=== PATIENT | female | born 1935 | race Caucasian/White ===

== ENCOUNTER 2019-04-30 02:56 | Inpatient (IN) ==
[2019-04-30] MEDS ORDERED: NS 1,000 ML IV ONE (03:54)
[2019-04-30] MEDS ORDERED: ZOFRAN IV ONE (03:54)
[2019-04-30] MEDS ORDERED: DILAUDID IV ONE (03:54)
--- NOTE | 2019-04-30 03:56 | PROVIDER DOCUMENTATION ---
HPI-Abdominal Pain/GI Problem - General Chief Complaint: Back Pain Stated Complaint: ABD PAIN/VOMITING/CHF Time Seen by Provider: 04/30/19 03:28 Source: patient, family Allergies/Adverse Reactions: Patient Allergies Allergy/AdvReac Type Severity Reaction Status Date / Time Penicillins Allergy SWELLING Verified 04/30/19 03:32 Sulfa (Sulfonamide Allergy HIVES Verified 04/30/19 03:32 Antibiotics) Home Medications: Home Medication List Medication Instructions Recorded Confirmed Last Taken Type Diltiazem C.d. [Cardizem Cd] 180 mg PO DAILY 11/25/17 04/30/19 12/07/17 09:00 History Simvastatin 10 mg PO QHS 11/25/17 04/30/19 12/07/17 09:00 History Carvedilol [Coreg] 6.25 mg PO BID #60 tab 12/19/17 04/30/19 Unknown Rx Apixaban [Eliquis] 5 mg PO BID 03/13/18 04/30/19 Unknown History Furosemide [Lasix] 20 mg PO BID 03/13/18 04/30/19 Unknown History Hydralazine [Apresoline] 25 mg PO BID 03/13/18 04/30/19 Unknown History Levothyroxine Sodium [Synthroid] 100 mcg PO DAILY 03/13/18 04/30/19 Unknown History - History of Present Illness-ABD Nature of Presenting Problems: A 84 Y/O FEMALE PRESENTS WITH C/O ABD PAIN SINCE 10 PM LAST NIGHT. PAINIS ABOUT A 10 AND CRAMPING. ASSOCIATED WITH SOME NAUSEA AND NBNB EMESIS X3 BEFORE COMING TO ER. DENIES ANY CP OR SOB. DENIES ANY DIARRHEA. DENIES ANY FEVER OR CHILLS. LAST BM WAS YESTERDAY. PT HAD DINNER ABOUT 6 PM YESTERDAY. HAS HX OF COLON RESECTION Abdominal Pain Onset Location: reports: generalized abdomen Quality of Pain: reports: cramping, sharp Severity in ED: reports: severe Onset/Duration: reports: 4-6 hours ago Timing: reports: still present, constant, getting worse Activities at Onset: reports: none Exposure to sick contacts?: No Modifying Factors: improves with: nothing Associated Symptoms: reports: nausea, vomiting, weakness. denies: chest pain, constipation, cough, diaphoresis, diarrhea, dizziness, fatigue, fever/chills, genitourinary problems, headaches, loss of appetite, shortness of breath, syncope Dark Stools Present?: reports: none noticed Rectal Bleeding: reports: none # of Vomiting Episodes: 3 Emesis Description: reports: clear Review of Systems - Adult - REVIEW OF SYSTEMS - ADULT Constitutional: denies: no symptoms reported Eyes: denies: no symptoms reported Ears, Nose, Mouth & Throat: denies: no symptoms reported Cardiovascular: denies: no symptoms reported Respiratory: denies: no symptoms reported Gastrointestinal: reports: see HPI Genitourinary: reports: see HPI Musculoskeletal: denies: no symptoms reported Integumentary: denies: no symptoms reported Neurological: denies: no symptoms reported Psychiatric: denies: no symptoms reported Endocrine: denies: no symptoms reported Hematologic/Lymphatic: denies: no symptoms reported Allergic/Immunologic: denies: no symptoms reported Past History - Adult - PAST MEDICAL HISTORY-ADULT Review of Records: reports: Old Records Reviewed, Nursing Assessment Review, Medications Reviewed, Social history reviewed & non-contributory. Major Childhood Illnesses: reports: denies history Cardiovascular: reports: HTN Respiratory: reports: denies history Gastrointestinal: reports: denies history Obstetrical/Gynecological: reports: denies history Genitourinary: reports: kidney disease Musculoskeletal: reports: denies history Neurological: reports: denies history Psychiatric: reports: denies history Endocrine/Immune: reports: Diabetes Other Conditions: reports: denies history - PRIOR SURGERIES/PROCEDURES Surgical/Procedure History: reports: reviewed, not pertinent - IMMUNIZATION STATUS Childhood Immunizations: See Nurse Assessment Flu Vaccine: See Nurse Assessment - FAMILY HISTORY Family History: reviewed, not pertinent Physical Exam-General - PHYSICAL EXAM-ADULT Initial Vital Signs Reviewed: Yes - CONSTITUTIONAL General Appearance: alert, moderate distress - EYES Eyes: PERRL/EOMI - HEAD, EARS, NOSE, MOUTH & THROAT HENMT: normocephalic/atraumatic, pharynx normal. negative: moist mucous membranes - RESPIRATORY Respiratory: lungs clear, normal breath sounds, no respiratory distress, no accessory muscle use - CARDIOVASCULAR Cardiovascular: regular rate, rhythm, no murmur - GASTROINTESTINAL (ABDOMEN) Abdominal Exam: abnormal bowel sounds, guarding, tenderness (GENERALIZED), hernia (VENTRAL HERNIA, BILATERAL). negative: rigid - MUSCULOSKELETAL Back Exam: no CVA tenderness, no vertebral tenderness Extremity: non-tender, pedal edema (TRACE). negative: calf tenderness Peripheral Pulses: radial (R): 2+, radial (L): 2+ - SKIN Integumentary: normal color, warm/dry - NEUROLOGIC Neurologic: grossly normal - PSYCHIATRIC Psych/Mental Status: normal mood/affect, normal thought content, normal thought process, oriented x 3 Progress - PLAN OF CARE/RESULTS Progress/Plan/Lab Results: Vital Signs - 8 hr 04/30/19 03:07 Temperature 97.4 F L Pulse Rate 67 Respiratory Rate 14 Blood Pressure 191/97 O2 Sat by Pulse Oximetry 95 Orders Category Date Time Status Saline Loc DIRECTED Care 04/30/19 03:53 Ordered NPO Diet 04/30/19 03:[address] ABD/PELVIS W/IV CONT ONLY [CT] Stat Exams 04/30/19 03:52 Ordered AMYLASE [CHEM] Stat Lab 04/30/19 03:53 Uncollected CBC WITH ELECTRONIC DIFF [HEME] Stat Lab 04/30/19 03:53 Uncollected COMPREHENSIVE METABOLIC PANEL [CHEM] Stat Lab 04/30/19 03:53 Uncollected LIPASE [CHEM] Stat Lab 04/30/19 03:53 Uncollected URINALYSIS W/POSS RFLX CULT [URINALYSIS] Stat Lab 04/30/19 03:53 Uncollected Hydromorphone [Dilaudid] Med 04/30/19 03:54 Once 1 mg IV NOW ONE Ns 1000 ml IV Bolus X1 Med 04/30/19 03:54 Ordered 0.9% Sodium Chloride Inj [Ns] 1,000 ml IV 999 mls/hr Ondansetron [Zofran] Med 04/30/19 03:54 Once 4 mg IV NOW ONE Result Diagrams: 04/30/19 03:55 04/30/19 03:55 - REASSESSMENT Reassessment #1 Time Reassessed: 06:00 Status: improving (PAIN BETTER AFTER DILAUDID. CONTINUES TO HAVE WHEN MOVES. CT PENDING) - CONSULTS/PCP/HOSPITALIST Notification #1 *Consult/PCP/Hospitalist*: D/W DR EDMONDS Time Discussed: 06:25 Consult Disposition: Will see in ED, Admit (ADMIT TO HOSPITALIST) #2 Consult: D/W NAHUN FOR HOSPITALIST Time Discussed: 07:40 Consult Disposition: Admit Departure - Departure Date of Disposition Decision: 04/30/19 Time of Disposition Decision: 06:43 DIAGNOSIS: Small bowel obstruction, Abdominal pain Disposition: ADMITTED INPATIENT 09 Certified Medical Emergency: Emergent Condition: Serious Referrals and Follow-Ups: Salinas Mora MD [Primary Care Provider] - - Critical Care Note This patient required my direct & personal management of CC.: No Attestation - Physician/ WILI Attestation Patient care was provided by Advanced Practice Provider:: No The physician spent face to face time with patient:: Yes Advanced Practice Provider documentation review:: Supervising physician onsite and consulted in the evaluation and care of this patient. The physician did have a face to face encounter with the patient.
[2019-04-30 04:32] LABS: EOS# 0.04 X1000 (0.0-0.7); EOS% 0.3 % (0.0-10.0); HEMATOCRIT 38.8 % (37.0-47.0); IMM GRAN# 0.02 X1000 (0.0-0.04); IMM GRAN% 0.2 % (0.0-0.5); LYMPH# 0.86 X1000 (1.2-3.4); LYMPH% 7.1 % (20.5-51.1); MCH 28.8 PG (27-31); MCHC 30.9 g/dL (33-37); MCV 93.3 FL (81-99); MONO# 0.82 X1000 (0.11-0.59); MONO% 6.7 % (1.7-9.3); MPV 11.7 FL (7.4-10.4); NEUT# 10.41 X1000 (1.4-6.5); NEUT% 85.7 % (42.2-75.2); PLT 198 X1000 (130-400); RBC 4.16 XMIL (4.2-5.4); RDW 13.1 % (11.5-14.5); WBC 12.15 X1000 (4.8-10.8)
[2019-04-30 04:50] LABS: ALB/GLOB RATIO 1.1; CALCIUM 9.6 mg/dL (8.8-10.2); CREATININE 2.7 mg/dL (0.5-0.9); POTASSIUM 5.3 mmol/L (3.5-5.1); TOTAL BILIRUBIN 0.52 mg/dL (0.20-1.00); TOTAL PROTEIN 7.6 g/dL (6.3-8.3)
[2019-04-30 07:42] LABS: URINE SOURCE CLEAN CATCH
[2019-04-30 07:49] LABS: BILIRUBIN URINE NEGATIVE (NEGATIVE); BLOOD URINE NEGATIVE (NEGATIVE); COLOR YELLOW; GLUCOSE URINE 70 mg/dL (NEGATIVE); KETONE URINE TRACE mg/dL (NEGATIVE); LEUKOCYTES URINE NEGATIVE (NEGATIVE); NITRITE URINE NEGATIVE (NEGATIVE); PROTEIN URINE 70 mg/dL (NEGATIVE); SP GRAVITY URINE 1.013; TURBIDITY URINE CLEAR (CLEAR); UROBILINOGEN URINE NORMAL (NORMAL)
[2019-04-30 07:51] LABS: UR EPITHELIAL CELLS <10 /HPF (<10); URINE BACTERIA NEGATIVE /HPF; URINE RBC <10 /HPF (<10); URINE WBC <10 /HPF (<10)
[2019-04-30] MEDS ORDERED: SODIUM CHLORIDE 0.9% INJ ONE (08:25)
[2019-04-30] MEDS ORDERED: ZOFRAN IV PRN (08:25)
[2019-04-30] MEDS ORDERED: SYNTHROID IV ONE (08:25)
[2019-04-30 08:54] LABS: HEMOGLOBIN A1C 5.2 % (4.8-6.0)
--- NOTE | 2019-04-30 09:06 | Diag Imaging Result Doc PS360 ---
EXAM: CT ABDOMEN/PELVIS W/O CONTRAST INDICATION: ABD PAIN TECHNIQUE: This exam was performed using automated exposure control, adjustment of mA or kV according to patient size, and/or use of iterative reconstruction technique. COMPARISON: 12/12/2017 FINDINGS: There is mild subsegmental atelectasis at the lung bases. There has been a prior cholecystectomy. The liver, spleen, pancreas, and adrenal glands are unremarkable. There is stable marked pelvocaliectasis and dilation of a majority of the left ureter that is stable. There is associated marked left renal cortical thinning. The right kidney is essentially unremarkable by unenhanced CT. The urinary bladder is unremarkable. The reproductive tract is essentially unremarkable as imaged. There is a large paraumbilical hernia. This is also seen on the previous study. Loops of small bowel extend into the hernia and there are distended bowel loops in the right side of the hernia that appears to be causing obstruction. There is equalization of the small bowel contents in this region. Proximal to this, there is small bowel distention with air-fluid levels. The distal ileum is decompressed. There is no colonic distention. The remainder of the GI tract is essentially unremarkable. There is spondylosis. There is no evidence of acute osseous abnormality. IMPRESSION: 1.Large periumbilical ventral abdominal wall hernia causing a high-grade small bowel obstruction. 2.Stable severe chronic pelvocaliectasis on the left. 3.Other incidental/nonacute findings detailed above. Electronically signed by Salinas Hedrick 04/30/2019 9:04 AM
[2019-04-30 09:09] LABS: FREE T4 1.41 ng/dL (0.93-1.70); TSH 3.8 uIUmL (0.27-4.20)
[2019-04-30] MEDS: DILAUDID IV PRN ×3 (10:42→18:21)
[2019-04-30] MEDS: NS 1,000 ML IV SCH (10:43)
[2019-04-30] MEDS: HUMULIN R SUBQ SCH ×3 (12:07→21:00)
[2019-04-30] MEDS: LOPRESSOR IV SCH ×3 (12:09→22:54)
--- NOTE | 2019-04-30 12:43 | EKG Report ---
Test Performed on : 04/30/2019 12:37:51 PM Test Reason : rythm eval; hx afib Blood Pressure : / mmHG Vent. Rate : 075 BPM Atrial Rate : 075 BPM P-R Int : 192 ms QRS Dur : 140 ms QT Int : 430 ms P-R-T Axes : 055 -42 050 degrees QTc Int : 480 ms Normal sinus rhythm. Possible Left atrial enlargement Left axis deviation Right bundle branch block Abnormal ECG When compared with ECG of 13-MAR-2018 13:51, Criteria for Septal infarct are no longer present Confirmed by Jef JUAREZ, Brandon Rico ([id number]) on 05/01/2019 9:04:24 AM
--- NOTE | 2019-04-30 13:34 | GENERAL SURGERY CONSULTATION ---
DATE: 04/30/2019 REQUESTING PHYSICIAN: Emergency Department. CONSULT REQUEST: Small bowel obstruction. HISTORY OF PRESENT ILLNESS: An 84-year-old female with multiple medical comorbidities initially presenting with back ache and abdominal pain and some nausea and vomiting. She also reported some epigastric pain. She was seen in the emergency department, had a CT scan that showed a bowel obstruction secondary to ventral hernia that has been there for some time. I was asked to weigh an opinion. The patient is doing okay right now, wants to try to avoid surgery. PAST MEDICAL HISTORY: 1. Atrial fibrillation. 2. Diabetes. 3. Chronic kidney disease. 4. Hypertension. 5. Gout. 6. Obesity. 7. Lymphedema. 8. Chronic respiratory failure. 9. History of DVT. PAST SURGICAL HISTORY: Includes 1. Cystoscopy. 2. Colectomy. 3. Cholecystectomy. 4. Abdominal hernia repair. 5. Partial nephrectomy. 6. Lysis of adhesions. FAMILY HISTORY: Reviewed with patient, noncontributory. SOCIAL HISTORY: Lives with daughter. Denies alcohol, tobacco, or illicit drugs. HOME MEDICATIONS: Reviewed. Of note, patient is on Eliquis. ALLERGIES: 1. Penicillin. 2. Sulfa. REVIEW OF SYSTEMS: A full 14-point systems reviewed and negative as specified in HPI. PHYSICAL EXAMINATION: Vital Signs: Patient is currently afebrile. Blood pressure is 191/97, pulse is 67. General: No acute distress but chronically ill female, looks stated age. HEENT: Normocephalic, atraumatic. Pupils equal, round, reactive to light. Mucous membranes moist. Oropharynx benign. Neck: Supple. Trachea midline. Cardiovascular: Regular rate and rhythm. Lungs: Grossly clear. Abdomen: Soft, protuberant. Large ventral hernia noted in the mid aspect of her abdomen. Extremities: Moves all extremities. Neurologic: Grossly intact. Skin: No signs of jaundice. Vascular: All extremities perfused. LABORATORY DATA: White blood count is 12, hematocrit 38, platelet count 198,000. There is a slight left shift. Remainder of labs reviewed. Of note, her creatinine is 2.7. CT scan independently reviewed and radiology report reviewed. ASSESSMENT/PLAN: An 84-year-old with a bowel obstruction likely related to ventral hernia. 1. Bowel obstruction. At this time, given patient's multiple active comorbidities including hypertension, diabetes, atrial fibrillation, being on Eliquis, chronic respiratory failure, I believe that she is high risk for surgery. Discussed extensively with her the options. At this point, we will try conservative nonoperative management and try to see if we can get her improved with bowel rest. If she has any kind of deterioration, we will plan on surgical intervention, but at this time, I think we can try to manage her nonoperatively. 2. Multiple medical comorbidities. Please see above. The patient to be admitted by the hospitalist. cc: Demetrius Benitez MD
--- NOTE | 2019-04-30 19:21 | HISTORY AND PHYSICAL ---
PRIMARY CARE PROVIDER: Dr. Vargas. CHIEF COMPLAINT: Abdominal pain. HISTORY OF PRESENT ILLNESS: Ms. Dina Javier is an 84-year-old female with a medical history of paroxysmal atrial fibrillation, diabetes mellitus type 2, stage III CKD, hypertension, obesity, ventral hernia, apparently some abdominal lysis of adhesions in the past, partial nephrectomy from lesions and is now here for complaints of abdominal pain that is bilateral lower quadrant where she has 2 areas of protrusion consistent with ventral wall hernia. She states that yesterday evening when she was trying to have a bowel movement she felt the pain start. No bowel movement since then. She did have some nausea, but that is resolved. No vomiting so she presented to the emergency department here at [facility] had abdominal pelvic CT, which shows a large periumbilical ventral abdominal wall hernia with a high- grade small bowel obstruction. Dr. Benitez was consulted. It looks like Dr. Cuba has been placed into the consult location. We will keep her n.p.o. and give her some IV fluids. PAST MEDICAL HISTORY: 1. Paroxysmal atrial fibrillation. 2. Diabetes mellitus type 2. 3. Anemia. 4. 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 5. Hypertension. 6. Gout. 7. Morbid obesity with a BMI of 39. 8. Chronic oxygen use likely Pickwickian syndrome or it could be COPD but no history of smoking. She is on 3 to 4 L of oxygen at home. Uses BiPAP at night for his obstructive sleep apnea. 9. DVT history. 10. Hypothyroidism. 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 12. Congestive heart failure. 13. Ventral hernia. SURGICAL HISTORY: 1. A cystoscopy with bilateral retrograde pyelograms and left diagnostic ureteroscopy, and this was in November [address] Lopez. 2. Extensive laparoscopic lysis of adhesions with right robotic assisted laparoscopic partial nephrectomy of 3 lesions, and this was on 12/03/[address] Lopez. 3. She has had 2 central lines when she has been here in the past. 4. Partial colectomy. 5. Questionable ventral hernia repair. 6. It looks like from Dr. Lopez note from November 2017 she had the partial nephrectomy on the right and there is also apparently a nonfunctioning left kidney. SOCIAL HISTORY: Does not smoke. Just rarely will she drink some wine but no drugs. Lives with her daughter. Uses a walker to get around. Always has sitters with her. FAMILY HISTORY: Mother at 38 from uterine cancer. Father of an SC at 68 and also on his side of the family mother and father both had heart disease and the father had a stroke. ALLERGIES: Penicillin and sulfa. HOME MEDICATIONS: 1. Simvastatin 10 mg p.o. nightly. 2. Apresoline 25 mg p.o. twice daily. 3. Diltiazem 180 mg p.o. daily. 4. Eliquis 5 mg p.o. twice daily. 5. Lasix 20 mg p.o. twice daily. 6. Synthroid 100 mcg p.o. daily. 7. Coreg 6.25 mg p.o. twice daily. REVIEW OF SYSTEMS: Fourteen-point review of systems are complete and all were negative except for those mentioned above in HPI. Denies fever, chills. PHYSICAL EXAMINATION: VITAL SIGNS: Temperature 98.2 degrees, heart rate 75, respiratory rate 16, blood pressure 119/54, O2 saturation 97% on 2 L, 5 feet 3 inches tall, 220 pounds, BMI 39. GENERAL: Ms. Dina Javier is a 84-year-old female. She is slightly discombobulated or slightly confused as she has had pain medication, but she answers questions when asked. HEENT: Atraumatic, normocephalic. Pupils equal, round, reactive to light. Extraocular movements intact. Mucous membranes are dry. NECK: Trachea midline. CARDIOVASCULAR: S1, S2. Regular rate and rhythm. No rubs, gallops, murmurs. Probably about 3 or 4+ lower extremity edema, +1 dorsalis pedal pulses. Negative for JVD or carotid bruits. PULMONARY: Clear to auscultation bilateral breath sounds. No accessory muscle use or work of breathing noted. Tolerating nasal cannula. GASTROINTESTINAL: Soft but firm in the bilateral lower quadrants, very palpable hernia bilateral lower quadrant underneath the umbilicus, ventral hernia. Very tender to palpation. Positive bowel sounds x4. EXTREMITIES: Decreased range of motion. More range of motion of the upper extremities. 4/5 strength upper 3/5 lower. NEUROLOGIC: Oriented to name, place. Followed commands. Decreased sensory in the lower extremities. SKIN: Warm, dry and intact. LABORATORY DATA: White blood cells 12,000, hemoglobin 12, hematocrit 38, platelet count 198,000, sodium 137, potassium 5.3, BUN is 14, BUN 51, creatinine is 2.7, glucose 154, A1c is 5.2, calcium 9.6, bilirubin 0.52, AST 22, ALT 7, amylase 90, lipase 67. Serum lactate 1.0. TSH 3.80, free T4 1.41. Urinalysis: 70 protein, 70 glucose, trace ketones. IMAGING: Abdominal and pelvic CT. Large periumbilical hernia. Also seen on previous study. Loops of small bowel extending into the hernia and there are distended bowel loops on the right side of the hernia that appears to be causing obstruction. There is equalization of the small bowel contents in this region proximal to this. There is small bowel distention with air fluid levels. The distal ilium is decompressed. There is no colonic distention. ASSESSMENT AND PLAN: 1. Small-bowel obstruction secondary to ventral hernia. Dr. Benitez was notified it looks like [id number], but it appears that physician will be Dr. Cuba. She is kept n.p.o. She is not vomiting, but she has antiemetics as needed and pain medication for pain control. Still having positive bowel sounds, but she is tender, and there is definitely some distention bilateral lower quadrant abdominal area below the umbilicus. 2. Chronic kidney disease stage 3. Left kidney does not work, and the right kidney has a partial nephrectomy secondary to [address] Lopez's note. Currently BUN and creatinine are 51 and 2.7, which is around baseline. She runs anywhere from 2.4 up to 3.0, and since she is n.p.o., we will give her IV fluid hydration. 3. Leukocytosis could be secondary to the bowel obstruction. There are no other signs or symptoms of infection. May have to get a chest x-ray. She has likely Pickwickian or hypoventilation syndrome secondary to obesity, but we will get a chest x-ray to rule out any cause for the leukocytosis, and since she is having gastrointestinal-related symptoms, we will add gram-negative coverage antibiotic. 4. Chronic respiratory failure with CO2 retention likely secondary to hypoventilation syndrome. She is on 3 to 4 L of oxygen at home, wears BiPAP at night for her sleep apnea. 5. Hypothyroidism. Continue Synthroid, but we will do it IV. 6. Hypertension. Again, we will do IV medications to control that. 7. Diabetes mellitus type 2. We will do patterned blood glucoses and sliding scale insulin. 8. History of reported congestive heart failure holding her p.o. Lasix. We will monitor her. She is going to be given IV fluids for now since she is n.p.o. Dictated by NEELAM Loo for William Hicks MD Addendum: Patient seen and examined by myself. Agree with NEELAM note. It reflects my assessment and plan. Patient is being admitted to hospital for SBO. Will place her in NPO, IV fluids and pain medications. Will do serial abdominal X rays and monitor her closely. cc: NEELAM Loo MD [facility]
[2019-05-01] MEDS: DILAUDID IV PRN ×5 (00:09→18:38)
[2019-05-01] MEDS: NS 1,000 ML IV SCH ×3 (00:10→09:05)
[2019-05-01] MEDS: LOPRESSOR IV SCH ×4 (03:30→22:05)
[2019-05-01 06:32] LABS: EOS# 0.01 X1000 (0.0-0.7); EOS% 0.1 % (0.0-10.0); HEMATOCRIT 35.6 % (37.0-47.0); HEMOGLOBIN 10.4 g/dL (12.0-16.0); LYMPH# 0.79 X1000 (1.2-3.4); LYMPH% 9.2 % (20.5-51.1); MCH 28.5 PG (27-31); MCHC 29.2 g/dL (33-37); MCV 97.5 FL (81-99); MONO% 18.6 % (1.7-9.3); MPV 11.8 FL (7.4-10.4); NEUT# 6.19 X1000 (1.4-6.5); NEUT% 72.1 % (42.2-75.2); PLT 197 X1000 (130-400); RBC 3.65 XMIL (4.2-5.4); RDW 13.3 % (11.5-14.5); WBC 8.59 X1000 (4.8-10.8)
[2019-05-01 06:54] LABS: INR 1.51; PROTIME 18.5 Seconds (11.0-16.0); PTT 29.4 Seconds (22.3-41.8)
[2019-05-01] MEDS: SODIUM CHLORIDE 0.9% INJ PRN (07:02)
[2019-05-01] MEDS: SYNTHROID IV SCH (07:02)
[2019-05-01 07:47] LABS: POTASSIUM 4.9 mmol/L (3.5-5.1); SODIUM 144 mmol/L (136-145)
[2019-05-01 07:48] LABS: AGAP 11; ALB/GLOB RATIO 1.2; ALBUMIN 3.3 g/dL (3.5-5.0); ALKALINE PHOSPHATASE 57 U/L (32-104); BUN 47 mg/dL (8-22); CALCIUM 8.3 mg/dL (8.8-10.2); CHLORIDE 106 mmol/L (98-107); COSMO 300; CREATININE 3.1 mg/dL (0.5-0.9); ESTIMATED GFR 14; GLUCOSE 122 mg/dL (70-104); GOT 16 U/L (10-30); GPT < 5 U/L (10-36); MAGNESIUM 2.4 mg/dL (1.5-2.7); TCO2 27 mmol/L (25-35); TOTAL BILIRUBIN 0.57 mg/dL (0.20-1.00)
[2019-05-01] MEDS: HUMULIN R SUBQ SCH ×4 (08:43→22:01)
[2019-05-01] MEDS: LOVENOX SUBQ SCH (09:05)
--- NOTE | 2019-05-01 12:13 | Diag Imaging Result Doc PS360 ---
EXAM: ABDOMEN FLAT/UPRIGHT INDICATION: sbo TECHNIQUE: 2 views COMPARISON: None. FINDINGS: There are moderately gas-distended loops of small bowel throughout the abdomen consistent with known small bowel obstruction, which was seen on a prior CT. There is no definite large volume free abdominal gas. No organomegaly is appreciated. There is spondylosis throughout the spine. IMPRESSION: Moderately distended loops of small bowel consistent with known obstruction. Electronically signed by Salinas Hedrick 05/01/2019 12:11 PM
--- NOTE | 2019-05-01 13:06 | PROGRESS NOTE ---
DATE: 05/01/2019 SUBJECTIVE: The patient reports feeling fine. She is still not having any bowel movements. She notes that she is passing gas. She denies any fever or chills. OBJECTIVE: Vital Signs: Temperature is 98.1, heart rate 85, respiratory rate 20, blood pressure 142/56, and O2 saturation 97% on 3 L nasal cannula. General: This is an 84-year-old female lying in bed in no acute distress. Cardiovascular: S1 and S2 are heard. No murmurs, gallops, or rubs. Regular rate and rhythm. Respiratory: Clear bilaterally to auscultation. No work of breathing or use of accessory muscles. Abdomen: Soft but firm. There is a ventral hernia noted and very tender to palpation. There are no signs of peritoneal irritation. Bowel sounds are present. No organomegaly. Extremities: No clubbing, cyanosis, or edema. Peripheral pulses are present in both legs. Neurological: The patient is alert and oriented times 3 and moves all 4 extremities. LABORATORY DATA: White cell count is 8.59, hemoglobin 10.4, hematocrit 35.6, and platelets 197. Creatinine is 3.1 and calcium 8.3. ASSESSMENT AND PLAN: 1. Small bowel obstruction secondary to a ventral hernia. General Surgery is following at this point because of comorbidities and the clinical situation of the patient. No surgery is warranted. At this point we will continue with IV fluids, pain medication, and antiemetics and we will go from there. 2. Chronic kidney disease stage 3. The patient's creatinine is around baseline. We will continue to monitor. The patient has the history of a nephrectomy. 3. Leukocytosis secondary to bowel obstruction. The white cell count is back to normal. We will continue to monitor CBC daily. 4. It is important to remark that this patient is not on any antibiotics. 5. Chronic respiratory failure on home oxygen. We will continue to monitor. 6. Hypothyroidism. The patient is on Synthroid IV. 7. Hypertension. Blood pressure is under control. We will continue with the same management. 8. Diabetes mellitus type 2. We will continue with sliding scale insulin and Accu-Cheks before meals and at bedtime. DISPOSITION: We will continue to monitor this patient closely. We will allow her to have some ice chips. We will continue to monitor. cc: William Hicks MD
[2019-05-01] MEDS ORDERED: CLINIMIX E 4.25%-5% SOLUTION 1,000 ML IV SCH (18:30)
--- NOTE | 2019-05-01 22:21 | GENERAL SURGERY PROGRESS NOTE ---
DATE: 05/01/2019 Ms. Javier temp is 99.2 degrees. Hemodynamics are satisfactory. She is mildly tender on palpation of her abdomen. Bowel sounds are somewhat active. She denies any crampy pain. Denies any nausea. She says she has passed some flatus. Her x-ray still shows distended loops of small bowel. I think we should not start her on liquids as of yet. I will repeat her x-ray tomorrow. I will start her on some Clinimix in addition to her IV fluids for nourishment. cc: Willie Cuba MD
[2019-05-02] MEDS: LOPRESSOR IV SCH ×4 (02:16→23:05)
[2019-05-02] MEDS: HUMULIN R SUBQ SCH ×4 (06:37→23:05)
[2019-05-02] MEDS: SYNTHROID IV SCH (06:45)
[2019-05-02] MEDS: SODIUM CHLORIDE 0.9% INJ PRN (06:45)
[2019-05-02 06:56] LABS: BASO# 0.01 X1000 (0.0-0.2); BASO% 0.1 % (0.0-0.8); EOS# 0.02 X1000 (0.0-0.7); EOS% 0.3 % (0.0-10.0); HEMATOCRIT 32.5 % (37.0-47.0); HEMOGLOBIN 9.2 g/dL (12.0-16.0); LYMPH# 0.98 X1000 (1.2-3.4); LYMPH% 14.5 % (20.5-51.1); MCHC 28.3 g/dL (33-37); MCV 98.8 FL (81-99); MONO# 1.17 X1000 (0.11-0.59); MONO% 17.3 % (1.7-9.3); MPV 11.5 FL (7.4-10.4); NEUT% 67.8 % (42.2-75.2); PLT 144 X1000 (130-400); RBC 3.29 XMIL (4.2-5.4); WBC 6.78 X1000 (4.8-10.8)
[2019-05-02 07:11] LABS: CALCIUM 7.7 mg/dL (8.8-10.2); POTASSIUM 4.4 mmol/L (3.5-5.1)
--- NOTE | 2019-05-02 08:02 | Diag Imaging Result Doc PS360 ---
EXAM: ABDOMEN FLAT/UPRIGHT INDICATION: pain TECHNIQUE: 3 views COMPARISON: 05/01/2019 FINDINGS: Mild to moderately gaseous distention of a few loops of bowel has probably improved slightly. No large volume free abdominal gas is appreciated. The abdomen is grossly stable, otherwise. IMPRESSION: Slight interval improvement. Electronically signed by Salinas Hedrick 05/02/2019 8:00 AM
[2019-05-02] MEDS: NS 1,000 ML IV SCH ×3 (10:00→23:05)
[2019-05-02] MEDS: LOVENOX SUBQ SCH (10:01)
--- NOTE | 2019-05-02 10:11 | GENERAL SURGERY PROGRESS NOTE ---
DATE: 05/02/2019 Ms. Javier is improved this morning. Her bowels have moved. The plan will be to start her on clear liquids today. Family was enquiring about her CPAP and they will decide about bringing her CPAP tonight based on her CO2 level this evening. cc: Willie Cuba MD
--- NOTE | 2019-05-02 10:53 | PROGRESS NOTE ---
DATE: 05/02/2019 SUBJECTIVE: The patient reports having had 2 bowel movements yesterday. Denies any fever, chills, nausea or vomiting. OBJECTIVE: Vital Signs: Temperature 98.1 degrees, heart rate 86, respiratory rate 20, blood pressure 173/69, O2 saturation 92% on 3 L nasal cannula. General: This is a 89-year-old female lying in bed, in no acute distress. Cardiovascular: S1, S2 heard. No murmurs, gallops, or rubs. Regular rate and rhythm. Respiratory: Clear bilaterally to auscultation. No work of breathing or using accessory muscles. Abdomen: Soft but firm. Ventral hernia noted. Tender to palpation. No signs of peritoneal irritation. Bowel sounds present. No organomegaly. Extremities: No clubbing, cyanosis, or edema. Peripheral pulses present in both legs. Neurological: Patient is alert and oriented x3. Moves 4 extremities. LABORATORY DATA: White cell count 6.78, hemoglobin 9.2, hematocrit 32.5, platelets 144. Creatinine is 3.0. ASSESSMENT AND PLAN: 1. Small bowel obstruction secondary to ventral hernia. The patient started having bowel movements, so I think her condition is getting better. At this point, the patient has been started on clear liquid diet as per General Surgery. We will continue with Clinimix and pain medication. IV fluids I think we will stop it. We will continue with the same management. 2. Chronic kidney disease stage 3. Creatinine at baseline. We will continue to monitor BMP. 3. Leukocytosis secondary to bowel obstruction, resolved. 4. Chronic respiratory failure on home oxygen. Aware. We will continue to monitor. 5. Hypothyroidism. We will continue Synthroid IV. 6. Hypertension. Blood pressure is a little bit elevated but just one reading. The rest of it has been between 130s and 140s, so we will continue to monitor. 7. Diabetes mellitus type 2. We will continue with sliding scale insulin. Accu-Chek before meals and also at bedtime. 8. Disposition. We will continue to monitor this patient closely. We will start a clear liquid diet. We will go from there. cc: William Hicks MD
[2019-05-02 19:04] LABS: ALLEN TEST YES; BE -1.6 mmoll (-3.0-3.0); BLOOD TYPE ARTERIAL; HCO3-(ACT) 23.7 mmoll (20.0-26.0); METHB 1.3 % (0.0-1.5); O2(CT) 12.2 mL/dL (15.0-23.0); O2HB 94.6 % (95.0-99.0); PO2(98.6) 75 mmHg (60-100); SAMPLE BLOOD; THB 9.1 g/dL (11.5-17.4); pH(98.6) 7.27 (7.35-7.45)
[2019-05-02 19:06] LABS: MODALITY CANNULA; PCO2(98.6) 56 mmHg (35-45)
[2019-05-03] MEDS: SYNTHROID IV SCH ×2 (05:49→06:48)
[2019-05-03] MEDS: SODIUM CHLORIDE 0.9% INJ PRN (05:50)
[2019-05-03] MEDS: LOPRESSOR IV SCH ×3 (05:50→18:12)
--- NOTE | 2019-05-03 06:01 | GENERAL SURGERY PROGRESS NOTE ---
DATE: 05/03/2019 SUBJECTIVE: Patient doing okay. She was having some bowel movement. She is tolerating clear liquids. She is feeling okay. OBJECTIVE: Vital Signs: Patient is currently afebrile. Her vital signs are stable. General: No acute distress. HEENT: Normocephalic, atraumatic. Pupils equal, round, and reactive to light. Mucous membranes moist. Oropharynx benign. Neck: Supple. Trachea midline. Cardiovascular: Regular rate and rhythm. Lungs: Grossly clear. Abdomen: Soft and nontender. Extremities: Moves all extremities. Neurologic: Grossly intact. Skin: No signs of jaundice. Vascular: All extremities perfused. LABORATORY: None this morning as of yet, but reviewed labs from the weekend. ASSESSMENT AND PLAN: An 84-year-old with a ventral hernia with small bowel obstruction. 1. Small bowel obstruction. At this time, seems to be resolving clinically. We will advance her to full liquid diet and see how she does. No immediate plans for surgical intervention. 2. Multiple medical comorbidities makes the patient a high risk for any kind of surgical intervention, but the hospitalists are managing her. We will continue to follow. cc: Demetrius Benitez MD
[2019-05-03] MEDS: HUMULIN R SUBQ SCH ×4 (06:48→21:39)
[2019-05-03] MEDS: LOVENOX SUBQ SCH (09:07)
[2019-05-03] MEDS: NS 1,000 ML IV SCH (09:07)
[2019-05-03 09:43] LABS: BASO# 0.01 X1000 (0.0-0.2); BASO% 0.1 % (0.0-0.8); EOS# 0.08 X1000 (0.0-0.7); EOS% 1.2 % (0.0-10.0); HEMOGLOBIN 9.5 g/dL (12.0-16.0); IMM GRAN# 0.03 X1000 (0.0-0.04); IMM GRAN% 0.4 % (0.0-0.5); LYMPH% 14.9 % (20.5-51.1); MCH 28.2 PG (27-31); MCHC 28.8 g/dL (33-37); MCV 97.9 FL (81-99); MONO# 0.79 X1000 (0.11-0.59); MONO% 11.8 % (1.7-9.3); MPV 11.6 FL (7.4-10.4); NEUT% 71.6 % (42.2-75.2); PLT 155 X1000 (130-400); RBC 3.37 XMIL (4.2-5.4); RDW 13.1 % (11.5-14.5); WBC 6.71 X1000 (4.8-10.8)
[2019-05-03 10:12] LABS: POTASSIUM 3.9 mmol/L (3.5-5.1)
[2019-05-03 10:13] LABS: CALCIUM 7.7 mg/dL (8.8-10.2); CREATININE 2.8 mg/dL (0.5-0.9)
[2019-05-03 10:19] LABS: BANDS 4 % (0-1); HYPOCHROM 2+; LYMPHS 12 % (21-51); MONO 6 % (1-9); SEGS 78 % (42-75)
--- NOTE | 2019-05-03 13:37 | PROGRESS NOTE ---
DATE: 05/03/2019 SUBJECTIVE: The patient reports feeling fine. She has been tolerating a clear liquid diet very well. No nausea or vomiting. Bowel movement noted 2 days ago. OBJECTIVE: Vital Signs: Temperature 98.2 degrees, heart rate 80, respiratory rate 14, blood pressure 166/70, O2 saturation 94% on room air. General Examination: This is an 84-year-old, female lying in bed, in no acute distress. Cardiovascular Examination: S1 and S2 heard. No murmurs, gallops, or rubs. Regular rate and rhythm. Respiratory Examination: Clear bilaterally to auscultation. No work of breathing or using accessory muscles. Abdomen: Soft but firm. There is a ventral hernia noted. It ss somewhat tender to palpation but there are no signs of peritoneal irritation. Bowel sounds present. No organomegaly. Extremities: No clubbing, cyanosis, or edema. Peripheral pulses present in both legs. Neurological Examination: The patient is alert and oriented x3. Moves 4 extremities. Laboratory Data: Reviewed. ASSESSMENT AND PLAN: 1. Small bowel obstruction secondary to ventral hernia. The patient started having bowel movements the day before yesterday. The patient has been started on a clear liquid diet. We are going to change the diet to a gastrointestinal soft. I think this patient is doing good. At this point, we will repeat also the x-ray tomorrow morning. If she is tolerating a gastrointestinal soft diet, having bowel movements, and x-ray shows improved findings, I think she can be discharged. 2. Chronic kidney disease stage 3. Creatinine at baseline. We will continue to monitor BMP. 3. Chronic respiratory failure, on home oxygen. We will continue to monitor. 4. Hypertension. Blood pressure is basically between 150s and 160s. She is receiving metoprolol 5 mg every 6 hours since admission. I think just to improve a little bit the blood pressure control, we will start amlodipine and we will go from there. 5. Diabetes mellitus type 2. We will continue with sliding scale insulin, and Accu-Chek before meals and also at bedtime. 6. Disposition. We will continue to monitor this patient closely. As I mentioned before, if she tolerates a gastrointestinal soft diet very well, and bowel movements are present, and x-ray shows resolution of small bowel obstruction, I think this patient will be discharged tomorrow. cc: William Hicks MD
[2019-05-03] MEDS: NORVASC PO SCH ×2 (13:55→21:38)
[2019-05-04] MEDS: LOPRESSOR IV SCH ×3 (00:30→11:30)
[2019-05-04] MEDS: SYNTHROID IV SCH (06:30)
[2019-05-04] MEDS: HUMULIN R SUBQ SCH ×2 (07:33→11:07)
[2019-05-04 08:30] LABS: BASO# 0.01 X1000 (0.0-0.2); BASO% 0.2 % (0.0-0.8); EOS# 0.12 X1000 (0.0-0.7); EOS% 1.9 % (0.0-10.0); HEMATOCRIT 31.7 % (37.0-47.0); HEMOGLOBIN 9.1 g/dL (12.0-16.0); IMM GRAN# 0.03 X1000 (0.0-0.04); IMM GRAN% 0.5 % (0.0-0.5); LYMPH# 1.03 X1000 (1.2-3.4); LYMPH% 16.7 % (20.5-51.1); MCH 27.7 PG (27-31); MCHC 28.7 g/dL (33-37); MCV 96.6 FL (81-99); MONO# 0.75 X1000 (0.11-0.59); MONO% 12.2 % (1.7-9.3); MPV 11.8 FL (7.4-10.4); NEUT# 4.23 X1000 (1.4-6.5); NEUT% 68.5 % (42.2-75.2); PLT 172 X1000 (130-400); RBC 3.28 XMIL (4.2-5.4); WBC 6.17 X1000 (4.8-10.8)
[2019-05-04] MEDS: LOVENOX SUBQ SCH (09:13)
[2019-05-04] MEDS: NORVASC PO SCH (09:13)
--- NOTE | 2019-05-04 09:36 | Diag Imaging Result Doc PS360 ---
EXAM: ABDOMEN FLAT/UPRIGHT 05/04/2019 HISTORY: pain TECHNIQUE: Flat and upright abdomen COMMENT: There are surgical clips in the right upper quadrant. There is a nonspecific colonic and small bowel gas pattern. There is no evidence of organomegaly or mass. Some stool is present in the rectum. There are atherosclerotic calcifications in the aorta and splenic artery. Compared to 05/02/2019 the appearance of the abdomen has not changed appreciably. IMPRESSION: The possibility of mild ileus cannot be excluded. Otherwise nonspecific abdomen. Electronically signed by Odin Issa 05/04/2019 9:33 AM
--- NOTE | 2019-05-04 10:50 | GENERAL SURGERY PROGRESS NOTE ---
DATE: 05/04/2019 SUBJECTIVE: Patient doing well. She is tolerating a regular diet. OBJECTIVE: Vital Signs: Patient is currently afebrile. Her vital signs stable. General: No acute distress. HEENT: Normocephalic, atraumatic. Pupils equal, round, and reactive to light. Mucous membranes moist. Oropharynx benign. Neck: Supple. Trachea midline. Cardiovascular: Regular rate and rhythm. Lungs: Grossly clear. Abdomen: Soft, nontender, and nondistended. Extremities: Moves all extremities. Neurologic: Grossly intact. Skin: No signs of jaundice. Vascular: All extremities perfused. LABORATORY: None this morning as of yet. Reviewed labs from yesterday. ASSESSMENT/PLAN: An 84-year-old female with a ventral hernia and small-bowel obstruction. 1. Small bowel obstruction. At this time, seems to be improving clinically. We will continue to monitor. Hopefully, she can go home today. 2. Ventral hernia. At this time, patient is not an ideal surgical candidate so we will monitor. 3. Multiple medical comorbidities currently being managed by the hospitalist. These medical comorbidities put her at high risk for surgery. cc: Demetrius Benitez MD
[2019-05-04 11:15] VITALS: BP 174/60
--- NOTE | 2019-05-05 12:34 | DISCHARGE SUMMARY ---
ADMISSION DATE: 04/30/2019 DISCHARGE DATE: 05/04/2019 DISCHARGE DIAGNOSES: 1. Partial small bowel obstruction related to internal hernia, ventral hernia. 2. Chronic kidney failure, stage III. 3. Chronic respiratory failure. 4. Hypertension. 5. Type 2 diabetes. CONSULTATIONS: Dr. Benitez. GI PROCEDURES: None. HOSPITAL COURSE: Briefly, this is an 84-year-old female with diabetes, atrial fibrillation, stage 3 kidney disease, hypertension, presenting with a large periumbilical ventral abdominal wall hernia related to a previous partial colectomy for diverticulitis. She had a high-grade small- bowel obstruction. She was made NPO, placed on IV fluids, antiemetics. Hypothyroidism is stable. She was hydrated and followed. Eventually, gaseous distention improved. Her diet was advanced. She was placed on full liquids. She did well. X-ray looked pretty much normal on the . Questionable ileus but she was tolerating p.o. and she was having bowel movements, so she was felt to be stable. Abdominal exam was benign. Creatinine 2.8. Hemoglobin and hematocrit 9 and 31, white count is 6. DISCHARGE MEDICINES: Zocor 10 at bedtime, hydralazine 25 b.i.d., Cardizem CD 180 daily, Eliquis 5 b.i.d., Lasix 20 b.i.d., Synthroid 100 mcg daily, Coreg 6.25 b.i.d., and MiraLAX 17 daily p.r.n. if she does not have a bowel movement in 24 hours. DISCHARGE CONDITION: Stable. We will continue to follow closely. cc: Luis Carlos Reyes MD
== END 2019-05-04 15:27 | disposition home or self-care (01) | DRG 394 ==
LOC: ED 02:56 → SUATTDRO 09:00 → 4N 09:00
PROVIDERS: ATTEND Internal Medicine